=== PATIENT | male | born 1940 | race African-American/Black ===

== ENCOUNTER 2022-10-10 19:07 | Emergency (ER) | payer OTHER ==
[~2022-10-10] VITALS: Ht 175.3 cm; Wt 195.0 kg
[2022-10-10 20:51] LABS: BASOPHILS % 1.8 % (0.0-2.0); EOSINOPHILS % 3.3 % (0.0-5.0); HEMOGLOBIN. 12.4 g/dL (14.0-18.0); LYMPHOCYTES % 17.4 % (20.0-50.0); MEAN CORPUSCULAR HEMOGLOBIN 32.2 pg (28.0-32.0); MEAN CORPUSCULAR VOLUME 96.4 fL (80.0-94.0); MEAN PLATELET VOLUME 8.6 fl (7.4-10.4); MONOCYTES % 11.6 % (2.0-8.0); NEUTROPHILS % 65.9 % (40.0-76.0); PLATELET 116 x1000/uL (130-400); RED BLOOD CELL COUNT 3.84 mill/uL (4.7-6.1); RED CELL DISTRIBUTION WIDTH 18.8 % (11.6-14.6)
[2022-10-10 20:54] LABS: CHLORIDE 105 mEq/L (98-107)
[2022-10-10 20:57] LABS: INR 1.1; PROTHROMBIN TIME 11.9 sec (9.6-11.0)
[2022-10-10 22:46] VITALS: BP 138/85
== END 2022-10-10 23:02 | disposition home or self-care (01) ==
LOC: ER 19:11
DX: T82.590A Other mechanical complication of surgically created arteriovenous fistula, initial encounter (principal); I49.9 Cardiac arrhythmia, unspecified
CPT/HCPCS: 36415; 80053; 85025; 86850; 86900; 93005; 99284